=== PATIENT | female | born 1990 | race Caucasian/White ===

== ENCOUNTER 2021-07-10 00:35 | Emergency (ER) | payer OTHER ==
--- NOTE | 2021-07-10 01:11 | Emergency Department Report ---
ED Female HPI - General Chief complaint: Vaginal Bleeding Stated complaint: CLOTTING Time Seen by Provider: 07/10/21 00:55 - History of Present Illness Initial comments: Patient is 32 years old female 2 para 0, 1 and stillbirth 6 days ago at 21 weeks. Patient presented to the ER complaining of vaginal bleedi ng since she gave . Patient presented to the ER with a bag with clots and tissues that look like a product of conception. Patient stated that her pain is 5 out of 10. Patient also stated that she has been having some fever and chills. Patient denied any nausea or vomiting. MD Complaint: vaginal bleeding, pelvic pain - Related Data Previous Rx's Medication Instructions Recorded Last Taken Type Doxycycline Hyclate [Doxycycline 100 mg PO Q12HR #20 tab 07/10/21 Unknown Rx Hyclate TAB] HYDROcodone/APAP 5-325 [[place] 1 each PO Q6HR PRN #14 tablet 07/10/21 Unknown Rx 5/325] Misoprostol [Cytotec] 100 mcg PO BID #28 tablet 07/10/21 Unknown Rx Ondansetron [Zofran Odt] 4 mg PO Q8HR PRN #14 tab.rapdis 07/10/21 Unknown Rx Allergies Allergy/AdvReac Type Severity Reaction Status Date / Time No Known Allergies Allergy Verified 07/10/21 01:41 ED Review of Systems ROS: Stated complaint: CLOTTING Other details as noted in HPI Comment: All other systems reviewed and negative Constitutional: chills, fever Respiratory: denies: cough, shortness of breath, SOB with exertion Cardiovascular: denies: chest pain, palpitations Gastrointestinal: abdominal pain. denies: nausea, vomiting, diarrhea, constipation, hematemesis Neurological: denies: headache, weakness, numbness, paresthesias, confusion ED Past Medical Hx - Medications Home Medications: Home Medications Medication Instructions Recorded Confirmed Last Taken Type Doxycycline Hyclate [Doxycycline 100 mg PO Q12HR #20 tab 07/10/21 Unknown Rx Hyclate TAB] HYDROcodone/APAP 5-325 [[place] 1 each PO Q6HR PRN #14 tablet 07/10/21 Unknown Rx 5/325] Misoprostol [Cytotec] 100 mcg PO BID #28 tablet 07/10/21 Unknown Rx Ondansetron [Zofran Odt] 4 mg PO Q8HR PRN #14 tab.rapdis 07/10/21 Unknown Rx ED Physical Exam - General General appearance: alert, in no apparent distress - Head Head exam: Present: atraumatic, normocephalic - Eye Eye exam: Present: normal appearance - ENT ENT exam: Present: normal exam, normal orophraynx, mucous membranes moist - Neck Neck exam: Present: normal inspection, full ROM. Absent: tenderness, meningismus - Respiratory Respiratory exam: Present: normal lung sounds bilaterally - Cardiovascular Cardiovascular Exam: Present: regular rate, normal rhythm, normal heart sounds - GI/Abdominal GI/Abdominal exam: Present: soft, normal bowel sounds. Absent: distended, tenderness, guarding, rebound, rigid, organomegaly, mass, bruit, pulsatile mass, hernia - External exam: Present: normal external exam. Absent: erythema, swelling Speculum exam: Present: vaginal bleeding - Extremities Exam Extremities exam: Present: normal inspection, full ROM, normal capillary refill. Absent: tenderness - Back Exam Back exam: Present: normal inspection, full ROM. Absent: CVA tenderness (R), CVA tenderness (L) - Neurological Exam Neurological exam: Present: alert, oriented X3, CN II-XII intact - Psychiatric Psychiatric exam: Present: normal mood - Skin Skin exam: Present: warm, intact, normal color ED Course Vital Signs 07/10/21 07/10/21 01:58 02:00 Temperature 98.2 F Pulse Rate 69 Respiratory 18 18 Rate Blood Pressure 102/61 [Left] O2 Sat by Pulse 97 Oximetry ED Medical Decision Making - Lab Data Result diagrams: 07/10/21 01:26 07/10/21 01:26 - Radiology Data Radiology results: report reviewed - Medical Decision Making Patient is 32 years old female 2 para 0, 1 and stillbirth 6 days ago at 21 weeks. Patient presented to the ER complaining of vaginal bleeding since she gave . Patient presented to the ER with a bag with clots and tissues that look like a product of conception. Patient stated that her pain is 5 out of 10. Patient also stated that she has been having some fever and chills. Patient denied any nausea or vomiting. Labs reviewed and showed a leukocytosis of 16,000. Pelvic ultrasound showed a possible retained products of conception. I discussed the patient with Dr. Ann, OB on-call. Dr. Ann stated that patient can be admitted to the hospital or she can be given 800 of Cytotec and discharged home with Cytotec 100 twice a day for 14 days and doxycycline. I explained to the patient these 2 options patient elected to be discharged and follow-up with Dr. Ann in his office in the next 2 to 3 days. Patient advised to return to the ER if he develop any new symptoms. Critical care attestation.: If time is entered above; I have spent that time in minutes in the direct care of this critically ill patient, excluding procedure time. ED Disposition Clinical Impression: Retained products of conception, Abnormal vaginal bleeding Disposition: 01 HOME / SELF CARE / HOMELESS Is pt being admited?: No Condition: Stable Instructions: Abnormal Uterine Bleeding Prescriptions: Misoprostol [Cytotec] 100 mcg PO BID #28 tablet Doxycycline Hyclate [Doxycycline Hyclate TAB] 100 mg PO Q12HR #20 tab HYDROcodone/APAP 5-325 [[place] 5/325] 1 each PO Q6HR PRN #14 tablet PRN Reason: Pain Ondansetron [Zofran Odt] 4 mg PO Q8HR PRN #14 tab.rapdis PRN Reason: Nausea And Vomiting Referrals: ALDA ANN JR, MD [Staff Physician] - 3-5 Days
[2021-07-10 01:49] LABS: Basophils % (Auto) 0.2 % (0.0-1.8); Eosinophils # (Auto) 0.1 K/mm3 (0.0-0.4); Eosinophils % (Auto) 0.4 % (0.0-4.3); Hematocrit 28.5 % (30.3-42.9); Hemoglobin 9.5 gm/dl (10.1-14.3); Lymphocytes # (Auto) 2.2 K/mm3 (1.2-5.4); Lymphocytes % (Auto) 13.6 % (13.4-35.0); Mean Corpuscular HGB Conc 33 % (30-34); Mean Corpuscular Volume 93 fl (79-97); Monocytes # (Auto) 1.6 K/mm3 (0.0-0.8); Platelet Count 266 K/mm3 (140-440); Red Blood Count 3.06 M/mm3 (3.65-5.03)
[2021-07-10 02:00] LABS: Blood Urea Nitrogen 6 mg/dL (7-17); Calcium 9.3 mg/dL (8.4-10.2); Hemolysis Index 0
[2021-07-10 02:01] LABS: BUN/Creatinine Ratio 12
[2021-07-10] MEDS ORDERED: MORPHINE 4 MG/1 ML INJ IV ONE (02:02)
[2021-07-10] MEDS ORDERED: SODIUM CHLORIDE 0.9% 1000 ML 1,000 ML IV ONE (02:02)
[2021-07-10 02:07] LABS: INR 0.97 (0.87-1.13)
[2021-07-10] MEDS ORDERED: ONDANSETRON 4 MG/2 ML INJ IV ONE (02:07)
[2021-07-10 02:11] LABS: Partial Thromboplastin Time 29.7 Sec. (24.2-36.6)
--- NOTE | 2021-07-10 02:15 | Ultrasound Report ---
ULTRASOUND PELVIS INDICATION / CLINICAL INFORMATION: Vaginal bleeding/STILL 6 DAYS AGO. TECHNIQUE: Transabdominal. Duplex Color Doppler used: Yes. COMPARISON: None available FINDINGS: UTERUS: Uterus measures 11.8 cm. Endometrial stripe measures 2.7 cm. The endometrial stripe is thicke leonel. There is increased hyperemia within the region of the endometrial complex. RIGHT ADNEXA: Not visualized. LEFT ADNEXA: Not visualized. URINARY BLADDER: No significant abnormality. FREE FLUID: None. ADDITIONAL FINDINGS: None. IMPRESSION: Thickened endometrial complex in a uterus. There is increased hyperemia within the region of the endometrial complex, which raises concern for retained products of conception. Clinical correl ation is recommended. Signer Name: Adam Delatorre MD Signed: 07/10/2021 2:10 AM Workstation Name: [id number]
[2021-07-10 02:56] LABS: Bilirubin,Urine NEG (Negative); Blood,Urine SM (Negative); Color,Urine Yellow (Yellow); Protein,Urine <15 mg/dL mg/dL (Negative)
[2021-07-10] MEDS ORDERED: miSOPROStol 200 MCG TAB PO ONE (04:30)
[2021-07-10 05:25] VITALS: BP 110/65
== END 2021-07-10 05:25 | disposition home or self-care (01) ==
LOC: ED 00:35
DX: N93.9 Abnormal uterine and vaginal bleeding, unspecified (principal); Z79.899 Other long term (current) drug therapy; R79.1 Abnormal coagulation profile
CPT/HCPCS: 36415; 76856; 80048; 81001; 84702; 85025; 85610; 85730; 87040; 96361; 96374; 96375; 99284; J2270; J2405; J7030

== ENCOUNTER 2022-01-07 09:41 | Outpatient (CLI) | payer BC ==
--- NOTE | 2022-01-07 12:45 | Ultrasound Report ---
ULTRASOUND OBSTETRIC LIMITED INDICATION / CLINICAL INFORMATION: wellbeing. TECHNIQUE: Transabdominal ultrasound imaging. COMPARISON: None available. FINDINGS: HEART RATE (beats per minute): 145 AMNIOTIC FLUID INDEX (cm) = within normal limits PRESENTATION: Breech. ADDITIONAL FINDINGS: The cervix measures 3.0 cm in length. IMPRESSION: Breech presentation. No acute abnormality appreciated. Signer Name: Manish Ohaar Jr, MD Signed: 01/07/2022 12:41 PM Workstation Name: [id number]
== END 2022-01-07 12:18 | disposition home or self-care (01) ==
LOC: TRG 09:41 → APU 09:42 → TRG 12:18
PROVIDERS: ATTEND Obstetrics & Gynecology
DX: O42.912 Preterm premature rupture of membranes, unspecified as to length of time between rupture and onset of labor, second trimester (principal); Z3A.20 20 weeks gestation of pregnancy
CPT/HCPCS: 36415; 59025; 76815; 84112

== ENCOUNTER 2022-02-23 12:43 | Outpatient (CLI) | payer BC ==
[2022-02-23 13:18] VITALS: BP 117/70
[2022-02-23] MEDS ORDERED: LACTATED RINGERS 500 ML IV ONE (15:00)
--- NOTE | 2022-02-23 15:18 | Ultrasound Report ---
US OB BPP wo non-stress INDICATION / CLINICAL INFORMATION: IUP at 27 wks, decreased movement. TECHNIQUE: Transabdominal. COMPARISON: None available. FINDINGS: Biophysical Profile: breathing movements: 2 movements:2 posture and tone:2 Qualitative amniotic fluid volume: 2 heart rate: 168 bpm IMPRESSION: 1. Biophysical profile is 8 of 8. Signer Name: Jose Miguel Mix MD Signed: 02/23/2022 3:14 PM Workstation Name: [id number]
== END 2022-02-23 14:51 | disposition home or self-care (01) ==
LOC: APU 12:43 → TRG 12:43
PROVIDERS: ATTEND Obstetrics & Gynecology
DX: O36.8120 Decreased fetal movements, second trimester, not applicable or unspecified (principal); Z3A.27 27 weeks gestation of pregnancy
CPT/HCPCS: 59025; 76819

== ENCOUNTER 2022-04-09 20:59 | Outpatient (CLI) | payer BC ==
[2022-04-09 22:01] VITALS: BP 123/76
== END 2022-04-09 23:23 | disposition home or self-care (01) ==
LOC: TRG 20:59 → APU 21:00 → TRG 23:23
PROVIDERS: ATTEND Obstetrics & Gynecology
DX: O46.93 Antepartum hemorrhage, unspecified, third trimester (principal); O42.913 Preterm premature rupture of membranes, unspecified as to length of time between rupture and onset of labor, third trimester; Z3A.33 33 weeks gestation of pregnancy
CPT/HCPCS: 36415; 84112

== ENCOUNTER 2022-04-17 07:31 | Inpatient (IN) | payer BC ==
--- NOTE | 2022-04-17 08:53 | History and Physical Report ---
History of Present Illness Date of examination: 04/17/22 Date of admission: 04/17/22 Chief complaint: Leaking fluids History of present illness: 32 yo, @ 34.5 wk, initiated care with [facility] mock up maker at 13.4 wks gestation. has been complicated by history of pre-term delivery with short cervix with cerclage in place (co-managed by [facility] specialist). Present to [facility] with reports of "my water broke", noted to be grossly ruptured by RN. Reports positive FM. Denies any VB. Labs: B+, antibody negative; rubella immune; urine culture negative; HBsAg negative; HIV negative; HSV2 negative; GC/Chlamydia/Trich negative; 1 hr gtt 143; GBS unknown. Past History Past Medical History: other (Incomplete cervix) Past Surgical History: D&C (secondary to retained placenta) [employer] History: other (Incomplete cervix) Family/Genetic History: diabetes - Obstetrical History Expected Date of Delivery: 05/24/22 Actual Gestation: 34 Week(s) 6 Day(s) : 3 Para: 0 Hx # Term Pregnancies: 0 Number of Pregnancies: 1 Spontaneous Abortions: 1 Induced : 0 Number of Living Children: 0 Medications and Allergies Allergies Allergy/AdvReac Type Severity Reaction Status Date / Time No Known Allergies Allergy Verified 01/07/22 09:55 Home Medications Medication Instructions Recorded Confirmed Last Taken Type Doxycycline Hyclate [Doxycycline 100 mg PO Q12HR #20 tab 07/10/21 Unknown Rx Hyclate TAB] HYDROcodone/APAP 5-325 [[place] 1 each PO Q6HR PRN #14 tablet 07/10/21 Unknown Rx 5/325] Misoprostol [Cytotec] 100 mcg PO BID #28 tablet 07/10/21 Unknown Rx Ondansetron [Zofran Odt] 4 mg PO Q8HR PRN #14 tab.rapdis 07/10/21 Unknown Rx Active Meds: Active Medications Acetaminophen (Acetaminophen 325 Mg Tab) 650 mg PO Q4H PRN PRN Reason: Pain MILD(1-3)/Fever >100.5/GARZA Betamethasone Acet/Betameth SodPhos (Betamet Acet/Betamet Na Ph 6 Mg/Ml Inj 5 Ml Mdv) 12 mg IM Q24HR NEGAR Stop: 04/18/22 10:01 Docusate Sodium (Docusate Sodium 100 Mg Cap) 100 mg PO Q12H PRN PRN Reason: Constipation Lactated Ringer's (Lactated Ringers) 1,000 mls @ 125 mls/hr IV DIRECT NEGAR Ampicillin Sodium (Ampicillin/Ns 2 Gm/100 Ml) 2 gm in 100 mls @ 100 mls/hr IV Q6H NEGAR; Protocol Stop: 04/19/22 03:59 Multivitamins/Iron/Calcium ( [id number]-[id number] Fumarate-Folic Acid Vit Tab) 1 each PO QDAY NEGAR Review of Systems All systems: negative Genitourinary: leakage of fluid - Vital Signs Vital signs: Vital Signs Pulse Pulse Ox 71 97 04/17/22 08:01 04/17/22 08:01 Temp Pulse Resp BP Pulse Ox 98.0 F 64 18 127/81 98 04/17/22 08:03 04/17/22 08:46 04/17/22 08:03 04/17/22 08:05 04/17/22 08:46 - Physical Exam Breasts: Positive: normal Cardiovascular: Regular rate Lungs: Positive: Normal air movement Abdomen: Positive: other (gravid) Uterus: Positive: enlarged (S=D) - Obstetrical FHR: category 1 Uterine Contraction Monitor Mode: External Uterine Contraction Pattern: Irregular Results Result Diagrams: 04/17/22 08:34 04/17/22 08:34 All other labs normal. Assessment and Plan - Patient Problems (1) premature rupture of membranes Current Visit: Yes Status: Acute Qualifiers: PROM onset of labor timing: unspecified duration between rupture of membranes and onset of labor Qualified Code(s): O42.919 - premature rupture of membranes, unspecified as to length of time between rupture and onset of labor, unspecified trimester Plan to address problem: Admit to L & D [place] 12 mg IM q 24hrs x 2 Abt therapy per orders Closely monitor maternal and wellbeing (2) Cervical cerclage suture present in third trimester Current Visit: Yes Status: Acute (3) GBS screening not performed Current Visit: Yes Status: Acute
[2022-04-17] MEDS ORDERED: ACETAMINOPHEN 325 MG TAB PO PRN (09:00)
[2022-04-17] MEDS ORDERED: PRENATAL VIT27-FE FUMARATE-FOLIC ACID VIT TAB PO SCH (10:00)
[2022-04-17] MEDS ORDERED: DOCUSATE SODIUM 100 MG CAP PO PRN (10:00)
[2022-04-17] MEDS: BETAMET ACET/BETAMET NA PH 6 MG/ML INJ 5 ML MDV IM SCH (10:20)
[2022-04-17] MEDS: LACTATED RINGERS 1,000 ML IV SCH ×2 (11:01→21:34)
[2022-04-17 11:14] LABS: Basophils % (Auto) 0.2 % (0.0-1.8); Eosinophils # (Auto) 0.1 K/mm3 (0.0-0.4); Eosinophils % (Auto) 0.5 % (0.0-4.3); Hematocrit 32.1 % (30.3-42.9); Hemoglobin 10.7 gm/dl (10.1-14.3); Lymphocytes # (Auto) 1.7 K/mm3 (1.2-5.4); Lymphocytes % (Auto) 18.7 % (13.4-35.0); Mean Corpuscular HGB Conc 33 % (30-34); Mean Corpuscular Volume 90 fl (79-97); Monocytes # (Auto) 0.7 K/mm3 (0.0-0.8); Monocytes % (Auto) 7.7 % (0.0-7.3); Platelet Count 166 K/mm3 (140-440); Red Blood Count 3.58 M/mm3 (3.65-5.03); Red Cell Distribution Width 13.5 % (13.2-15.2)
[2022-04-17] MEDS: AMPICILLIN/NS 2 GM/100 ML 2 GM/100 ML BAG IV SCH ×3 (11:14→21:28)
[2022-04-17 11:42] LABS: Alanine Aminotransferase 10 units/L (7-56); Albumin 3.1 g/dL (3.9-5); BUN/Creatinine Ratio 13; Blood Urea Nitrogen 5 mg/dL (7-17); Calcium 8.7 mg/dL (8.4-10.2); Hemolysis Index 11
[2022-04-17] MEDS ORDERED: FAMOTIDINE 20 MG TAB PO ONE (22:45)
[2022-04-18] MEDS: AMPICILLIN/NS 2 GM/100 ML 2 GM/100 ML BAG IV SCH ×2 (05:39→11:13)
--- NOTE | 2022-04-18 08:40 | Operative Report ---
Operative Report Operative Report: Date of procedure: April 18, 2022 Pre-operative diagnosis: at 34+6 weeks; incompetent cervix; premature rupture membranes Post-operative diagnosis: Same as above Procedure name(s): Removal of cerclage Surgeon: Sara Mims M.D. Estimated blood loss: Minimal Anesthesia: None Findings Vogel cerclage with Mersilene tape Indication: 32-year-old -1-1-0 at 34+6 weeks who presents with premature rupture membranes. The patient has a history of incompetent cervix with a cerclage in place. The patient is scheduled for removal of her cerclage. Procedure The patient was placed in low lithotomy position. A sterile speculum was placed in the patient's vagina. There was copious amount of amniotic fluid in the vaginal vault. The anterior cervix was identified with findings of Mersilene tape at the 12 o'clock position. Sterile scissors and a ring forcep was placed in the vagina with elevation of the night of the Mersilene tape. 1 loop of the tape was cut with the Rouse scissors and the cerclage was removed atraumatically. There was minimal bleeding coming from the cervix. The cervix was visualized at approximately 1 cm. The vaginal instruments were then removed atraumatically.
[2022-04-18] MEDS: BETAMET ACET/BETAMET NA PH 6 MG/ML INJ 5 ML MDV IM SCH (11:12)
[2022-04-18] MEDS: LACTATED RINGERS 1,000 ML IV SCH (18:16)
--- NOTE | 2022-04-19 08:48 | Progress Note ---
Assessment and Plan - Patient Problems (1) premature rupture of membranes Current Visit: Yes Status: Acute Qualifiers: PROM onset of labor timing: unspecified duration between rupture of membranes and onset of labor Qualified Code(s): O42.919 - premature rupture of membranes, unspecified as to length of time between rupture and onset of labor, unspecified trimester Plan to address problem: Will proceed with induction Ultrasound ordered to verify presentation is still vertex Subjective - Subjective Date of service: 04/19/22 Interval history: 32-year-old -1-1-0 at 35+0 weeks who has been admitted for premature rupture membranes. The patient has a history of incompetent cervix for which the cerclage was removed yesterday without difficulty. Upon further discussion with maternal- medicine the plan is to proceed with induction of labor. The patient has received steroids. She currently remains afebrile and continues her antibiotic regimen. She denies any vaginal bleeding or uterine contractions. The plan was discussed with the patient, her mother, and the spouse. Patient reports: new complaints (Patient has infiltration of her left IV site) Objective - Vital Signs Vital Signs: Vital Signs - 12hr 04/18/22 04/18/22 04/18/22 21:28 21:33 21:38 Temperature 97.6 F Pulse Rate 74 74 74 Respiratory Rate Blood Pressure Blood Pressure [Right] O2 Sat by Pulse 96 96 97 Oximetry O2 Sat by Pulse 97 Oximetry [ Anterior Bilateral Throughout] 04/18/22 04/18/22 04/18/22 21:42 21:43 21:48 Temperature Pulse Rate 72 75 81 Respiratory Rate Blood Pressure 111/59 Blood Pressure [Right] O2 Sat by Pulse 98 98 Oximetry O2 Sat by Pulse Oximetry [ Anterior Bilateral Throughout] 04/18/22 04/18/22 04/18/22 21:53 21:58 22:03 Temperature Pulse Rate 84 74 75 Respiratory Rate Blood Pressure Blood Pressure [Right] O2 Sat by Pulse 97 97 97 Oximetry O2 Sat by Pulse Oximetry [ Anterior Bilateral Throughout] 04/18/22 04/18/22 04/18/22 22:08 22:13 22:18 Temperature Pulse Rate 71 77 69 Respiratory Rate Blood Pressure Blood Pressure [Right] O2 Sat by Pulse 98 100 99 Oximetry O2 Sat by Pulse Oximetry [ Anterior Bilateral Throughout] 04/18/22 04/18/22 04/18/22 22:23 22:28 22:33 Temperature Pulse Rate 67 71 73 Respiratory Rate Blood Pressure Blood Pressure [Right] O2 Sat by Pulse 99 99 99 Oximetry O2 Sat by Pulse Oximetry [ Anterior Bilateral Throughout] 04/18/22 04/18/22 04/18/22 22:38 22:43 22:48 Temperature Pulse Rate 74 81 82 Respiratory Rate Blood Pressure Blood Pressure [Right] O2 Sat by Pulse 98 96 96 Oximetry O2 Sat by Pulse Oximetry [ Anterior Bilateral Throughout] 04/18/22 04/18/22 04/18/22 22:53 22:58 23:03 Temperature Pulse Rate 85 77 77 Respiratory Rate Blood Pressure Blood Pressure [Right] O2 Sat by Pulse 96 96 96 Oximetry O2 Sat by Pulse Oximetry [ Anterior Bilateral Throughout] 04/18/22 04/18/22 04/18/22 23:08 23:13 23:18 Temperature Pulse Rate 80 78 78 Respiratory Rate Blood Pressure Blood Pressure [Right] O2 Sat by Pulse 96 96 96 Oximetry O2 Sat by Pulse Oximetry [ Anterior Bilateral Throughout] 04/18/22 04/19/22 04/19/22 23:23 02:53 02:58 Temperature Pulse Rate 77 64 64 Respiratory Rate Blood Pressure Blood Pressure [Right] O2 Sat by Pulse 97 97 97 Oximetry O2 Sat by Pulse Oximetry [ Anterior Bilateral Throughout] 04/19/22 04/19/22 04/19/22 03:03 03:08 03:13 Temperature Pulse Rate 64 62 63 Respiratory Rate Blood Pressure Blood Pressure [Right] O2 Sat by Pulse 97 96 96 Oximetry O2 Sat by Pulse Oximetry [ Anterior Bilateral Throughout] 04/19/22 04/19/22 04/19/22 03:18 03:30 03:31 Temperature 97.4 F L Pulse Rate 73 58 L 58 L Respiratory 18 Rate Blood Pressure 109/54 Blood Pressure 109/54 [Right] O2 Sat by Pulse 97 99 Oximetry O2 Sat by Pulse Oximetry [ Anterior Bilateral Throughout] - Exam Abdomen: Present: normal appearance, soft - Labs Labs: Abnormal Labs 04/17/22 04/17/22 04/17/22 08:34 08:34 Unknown RBC 3.58 L [place] % (Auto) 7.7 H Seg Neutrophils % 72.9 H Sodium 136 L Carbon Dioxide 21 L BUN 5 L Creatinine 0.4 L Total Protein 5.9 L Albumin 3.1 L Membranes Rupture Positive A
--- NOTE | 2022-04-19 10:34 | Ultrasound Report ---
ULTRASOUND OBSTETRIC LIMITED INDICATION / CLINICAL INFORMATION: position ptl pprom. TECHNIQUE: Transabdominal ultrasound imaging. COMPARISON: 01/07/2022 FINDINGS: HEART RATE (beats per minute): 133 AMNIOTIC FLUID INDEX (cm) = not measured PRESENTATION: Cephalic. ADDITIONAL FINDINGS: None. IMPRESSION: Cephalic presentation Signer Name: Manish Ohara Jr, MD Signed: 04/19/2022 10:30 AM Workstation Name: [id number]
[2022-04-19] MEDS ORDERED: ONDANSETRON 4 MG/2 ML INJ IV PRN (11:08)
[2022-04-19] MEDS ORDERED: OXYTOCIN 10 UNIT/1 ML INJ IM PRN (11:08)
[2022-04-19] MEDS ORDERED: METHYLERGONOVINE MALEATE 0.2 MG/ML VIAL IM PRN (11:08)
[2022-04-19] MEDS ORDERED: TERBUTALINE 1 MG/1 ML INJ SUB-Q PRN (11:08)
[2022-04-19] MEDS ORDERED: BUTORPHANOL 2 MG/1 ML INJ IV PRN (11:08)
[2022-04-19] MEDS ORDERED: ACETAMINOPHEN 325 MG TAB PO PRN (11:08)
[2022-04-19] MEDS ORDERED: fentaNYL 100 MCG/2 ML INJ IV PRN (11:08)
[2022-04-19] MEDS ORDERED: NalbUPHINE 10 MG/1 ML INJ IV PRN (11:08)
[2022-04-19] MEDS ORDERED: miSOPROStol 200 MCG TAB PR PRN (11:08)
[2022-04-19] MEDS ORDERED: LOPERAMIDE 2 MG CAP PO PRN (11:08)
[2022-04-19] MEDS ORDERED: MINERAL OIL 30 ML ORAL LIQD PO PRN (11:08)
[2022-04-19] MEDS ORDERED: CARBOPROST TROMETHAMINE 250 MCG/1 ML INJ IM PRN (11:08)
[2022-04-19] MEDS ORDERED: ePHEDrine SULFATE 50 MG/1 ML INJ IV PRN ×2 (11:08→20:37)
[2022-04-19] MEDS ORDERED: LACTATED RINGERS 1,000 ML IV SCH (11:15)
[2022-04-19] MEDS ORDERED: OXYTOCIN DRIP 30 UNITS/500 ML BAG IV SCH (12:00)
[2022-04-19] MEDS ORDERED: AMPICILLIN/NS 2 GM/100 ML 2 GM/100 ML BAG IV ONE (12:00)
[2022-04-19] MEDS ORDERED: LIDOCAINE (2%) 20 MG/1 ML VIAL 20 ML MDV INFILTRATI ONE (12:00)
[2022-04-19] MEDS: AMPICILLIN/NS 1 GM/50 ML 1 GM/50 ML BAG IV SCH ×2 (12:25→18:46)
[2022-04-19] MEDS: OXYTOCIN DRIP 30 UNITS/500 ML BAG IV SCH ×6 (12:48→18:41)
--- NOTE | 2022-04-19 20:35 | Anesthesia Consultation ---
Anesthesia Consult and Med Hx Date of service: 04/19/22 - Airway Anesthetic Teeth Evaluation: Good ROM Head & Neck: Adequate Mental/Hyoid Distance: Adequate Mallampati Class: Class II Intubation Access Assessment: Probably Good - Pulmonary Exam CTA: Yes - Cardiac Exam Cardiac Exam: RRR - Pre-Operative Health Status ASA Pre-Surgery Classification: ASA2 Proposed Anesthetic Plan: Epidural - Pre-Anesthesia Comment Pre-Anesthesia Comments: cervical cercloge. suction D&C - Pulmonary Hx Smoking: No Hx Asthma: No COPD: No Hx Pneumonia: No - Cardiovascular System Hx Hypertension: No - Central Nervous System Hx Seizures: No Hx Psychiatric Problems: No - Endocrine Hx Renal Disease: No Hx End Stage Renal Disease: No Hx Hypothyroidism: Yes Hx Hyperthyroidism: No - Hematic Hx Anemia: No Hx Sickle Cell Disease: No - Other Systems Hx Alcohol Use: No Hx Substance Use: No Hx Obesity: Yes
[2022-04-19] MEDS ORDERED: NALOXONE 0.4 MG/1 ML INJ IV PRN (20:37)
--- NOTE | 2022-04-19 20:37 | Progress Note ---
Labor Epidural - Labor Epidural Start Time: 20:10 Stop Time: 20:18 Performed by:: SONIDO RAMIREZ Procedure: Patient is requesting epidural for labor pain. H&P and labs reviewed. Procedure explained, questions answered, consent obtained. Patient placed in sitting position with monitors applied. Timeout performed immediately before start of procedure. Prep/drape in usual sterile fashion. Skin localized 3 mL 1% lidocaine at L[3]-L[4] interspace. 17-gauge Touhy epidural needle advanced to MITCH with saline at [8] cm x 1 attempt. No blood/CSF noted via epidural needle. Epidural catheter advanced to [12] cm. Negative aspiration for blood and CSF via catheter, negative response to test dose 3 ml 1.5% lidocaine w/ Epi. Sterile dressing applied followed by tape reinforcement. Patient tolerated procedure well. No immediate complications noted.
[2022-04-19] MEDS ORDERED: fentaNYL-BUPIV 2 MCG/ML-0.125% 200 MCG/100 ML BAG EPIDURAL SCH (21:00)
--- NOTE | 2022-04-20 02:07 | Procedure Note ---
OB Delivery Note - Delivery Date of Delivery: 04/20/22 Surgeon: AGUSTÍN RANDLE Estimated blood loss: 200cc - Vaginal Delivery presentation: vertex Delivery position: OA Intrapartum events: labor-<37 weeks, PROM->1hr before delivery Delivery induction: oxytocin Delivery augmentation: pitocin Delivery monitor: external FHT, external uterine Route of delivery: Delivery placenta: spontaneous Delivery cord: 3 umbilical vessels Episiotomy: none Delivery laceration: other (vaginal mucosa) Delivery repair: vicryl Anesthesia: epidural Delivery comments: Viable female delivered over intact perineum at 134 a.m.. Infant did not have a nuchal cord. Infant had spontaneous cry and was placed on maternal abdomen. Cord was clamped and cut when finished pulsating. Weight 5 pounds 1 ounces. Apgars 8/9. Placenta was delivered spontaneously and intact with three-vessel cord, with a significant amount of clot with in the placenta. Patient had a vaginal mucosa laceration that was repaired with 2-0 Vicryl. Excellent hemostasis. Patient tolerated procedure well. - Infant A at 1 minute: 8 at 5 minutes: 9 Infant Gender: Female (5 pounds 1ounce 2290g)
[2022-04-20] MEDS ORDERED: PROMETHAZINE 25 MG RECT SUPP PR PRN (05:31)
[2022-04-20] MEDS ORDERED: LANOLIN/ZINC/DIMETHICONE (LANSINOH) 7 GM TP PRN (05:31)
[2022-04-20] MEDS ORDERED: MAGNESIUM HYDROXIDE (MOM) ORAL LIQD UDC PO PRN (05:31)
[2022-04-20] MEDS ORDERED: diphenhydrAMINE 25 MG CAP PO PRN (05:31)
[2022-04-20] MEDS ORDERED: WITCH HAZEL/ GLYCERIN PAD TP PRN (05:31)
[2022-04-20] MEDS ORDERED: PROMETHAZINE 25 MG TAB PO PRN (05:31)
[2022-04-20] MEDS ORDERED: ACETAMINOPHEN 325 MG TAB PO PRN (05:31)
[2022-04-20] MEDS ORDERED: ONDANSETRON 4 MG/2 ML INJ IV PRN (05:31)
[2022-04-20] MEDS ORDERED: HYDROcodone/ACETAMINOPHEN 5-325 MG TAB PO PRN (05:31)
[2022-04-20] MEDS: IBUPROFEN 600 MG TAB PO SCH ×2 (12:00→18:50)
[2022-04-20 16:20] LABS: Hematocrit 30.5 % (30.3-42.9); Hemoglobin 10.4 gm/dl (10.1-14.3)
--- NOTE | 2022-04-20 19:27 | Post Anesthesia Evaluation ---
- Post Anesthesia Evaluation Patient Participated: Yes Airway Patent: Yes Stable Respiratory Function: Yes Nausea/Vomiting: No Temp > 96.8F: Yes Pain Manageable: Yes Adequeate Hydration: Yes Anesthesia Complications: No Block Receding Appropriately: Yes Patient on Ventilator: No
[2022-04-21] MEDS: IBUPROFEN 600 MG TAB PO SCH ×2 (01:20→06:44)
[2022-04-21 16:32] VITALS: BP 130/87
--- NOTE | 2022-04-21 16:39 | Discharge Summary ---
Providers - Providers Date of Admission: 04/17/22 08:35 Date of discharge: 04/21/22 Attending physician: ROSA SARAH Primary care physician: ROSA SARAH Hospitalization Reason for admission: induction of labor, other (pprom) Delivery: Episiotomy: none Laceration: vaginal side wall Other procedures: none complications: none, pelvic infection [place] baby: female Hospital course: unremarkable Disposition: 30 STILL A PATIENT Plan - Provider Discharge Summary Activity: routine, no sex for 6 weeks, no heavy lifting 4 weeks, no strenuous exercise Diet: routine Instructions: routine Additional instructions: [] Smoking cessation referral if applicable(refer to patient education folder for contact #) [] Refer to [facility]'s [facility] Booklet Call your doctor immediately for: * Fever > 100.5 * Heavy vaginal bleeding ( >1 pad per hour) * Severe persistent headache * Shortness of breath * Reddened, hot, painful area to leg or breast * Drainage or odor from incision. * Keep incision clean and dry at all times and follow doctor's instructions regarding bathing/showering - Follow up plan Follow up: ROSA SARAH MD [Primary Care Provider] - 6 Weeks
== END 2022-04-21 18:36 | disposition home or self-care (01) | DRG 768 ==
LOC: TRG 07:31 → APU 07:32 → TRG 08:51 → LD 13:43 → OB 04-20 05:08
PROVIDERS: ADMIT Obstetrics & Gynecology; ATTEND Obstetrics & Gynecology
PROC: 0UCC7ZZ Extirpation of Matter from Cervix, Via Natural or Artificial Opening (ICD-10-PCS; 2022-04-18)
PROC: 10E0XZZ Delivery of Products of Conception, External Approach (ICD-10-PCS; principal; 2022-04-20)
PROC: 3E0R3BZ Introduction of Anesthetic Agent into Spinal Canal, Percutaneous Approach (ICD-10-PCS; 2022-04-20)
PROC: 00HU33Z Insertion of Infusion Device into Spinal Canal, Percutaneous Approach (ICD-10-PCS; 2022-04-20)
PROC: 3E033VJ Introduction of Other Hormone into Peripheral Vein, Percutaneous Approach (ICD-10-PCS; 2022-04-20)
PROC: 0UQGXZZ Repair Vagina, External Approach (ICD-10-PCS; 2022-04-20)
DX: O42.013 Preterm premature rupture of membranes, onset of labor within 24 hours of rupture, third trimester (principal); Z37.0 Single live birth; O60.14X0 Preterm labor third trimester with preterm delivery third trimester, not applicable or unspecified; O34.33 Maternal care for cervical incompetence, third trimester; O71.4 Obstetric high vaginal laceration alone; Z3A.34 34 weeks gestation of pregnancy; Z20.822 Contact with and (suspected) exposure to COVID-19; Z88.8 Allergy status to other drugs, medicaments and biological substances; Z91.040 Latex allergy status
CPT/HCPCS: 36415; 76815; 80053; 84112; 85014; 85018; 85025; 86850; 86900; 86901; 88307; G0378; J3490; J0290; J0702; J2590; J3010; J7120; U0003